=== PATIENT | male | born 1995 | race Caucasian/White ===

== ENCOUNTER 2023-03-19 00:18 | Emergency (ER) | payer MEDICAID, OTHER | END 2023-03-19 00:58 | disposition left against medical advice (07) | LOC: EMS 00:19 | DX: T40.601A Poisoning by unspecified narcotics, accidental (unintentional), initial encounter (principal); F17.210 Nicotine dependence, cigarettes, uncomplicated; R11.2 Nausea with vomiting, unspecified; Y92.89 Other specified places as the place of occurrence of the external cause | CPT/HCPCS: 93005; 99281; Z7502 ==

== ENCOUNTER 2023-08-02 21:38 | Emergency (ER) | payer OTHER ==
[~2023-08-02] VITALS: Ht 177.8 cm; Wt 93.0 kg
[2023-08-02 21:46] VITALS: BP 117/77; PULSE 80; RESP 16; TEMP 98.2
[2023-08-02 22:34] LABS: COVID AG,FIA SOURCE NASAL SWAB
[2023-08-02 23:10] LABS: INFLUENZA TYPE A NEGATIVE FOR TYPE A (NEGATIVE); INFLUENZA TYPE B NEGATIVE FOR TYPE B (NEGATIVE); SARS-COV2 (COVID) ANTIGEN,FIA Negative (Negative)
[2023-08-02] MEDS ORDERED: ALBU18HF12 IH (23:23)
[2023-08-02] MEDS ORDERED: AZIT250T9 PO (23:23)
== END 2023-08-03 01:38 | disposition home or self-care (01) ==
LOC: EMS 21:41
DX: J06.9 Acute upper respiratory infection, unspecified (principal); J45.909 Unspecified asthma, uncomplicated; G43.909 Migraine, unspecified, not intractable, without status migrainosus; Z20.822 Contact with and (suspected) exposure to COVID-19
CPT/HCPCS: 87804; 99283

== ENCOUNTER 2024-03-12 08:18 | Emergency (ER) | payer OTHER ==
[~2024-03-12] VITALS: Ht 177.8 cm; Wt 97.7 kg
[~2024-03-12 08:18] MED LIST: ALBU18HF12 IH
[2024-03-12 08:20] VITALS: BP 134/81; PULSE 102; RESP 18; TEMP 98.2; O2SAT 96
[2024-03-12 09:10] LABS: EOSINOPHILS % (AUTO) 7.1 % (1.0-6.0); HEMATOCRIT 42.8 % (41-53); HEMOGLOBIN 14.6 g/dL (13.5-17.5); LYMPHOCYTES # (AUTO) 2.6 K/uL (1.0-4.8); LYMPHOCYTES % (AUTO) 45.9 % (22.0-44.0); MEAN CORPUSCULAR HEMOGLOBIN 29.8 pg (26.0-34.0); MEAN CORPUSCULAR VOLUME 88 fL (80-100); MONOCYTES # (AUTO) 0.5 K/uL (0.1-1.0); MONOCYTES % (AUTO) 8.9 % (2.0-9.0); NEUTROPHILS # (AUTO) 2.1 K/uL (1.8-7.7); NEUTROPHILS % (AUTO) 37.1 % (40.0-70.0); PLATELET COUNT (AUTO) 234 K/uL (150-450); RED BLOOD CELL COUNT(AUTO) 4.89 MIL/uL (4.50-5.90); RED CELL DISTRIBUTION WIDTH 13.2 % (11.5-14.5); WHITE BLOOD COUNT (AUTO) 5.6 K/uL (4.5-11.0)
[2024-03-12 09:15] LABS: ANION GAP 11 mmol/L (8-16); CALCIUM, TOTAL 8.5 mg/dL (8.8-10.5); CARBON DIOXIDE 25 mmol/L (22-29); CHLORIDE 104 mmol/L (98-107); GLOMERULAR FILTR. RATE CALC > 60 mL/min (>60); GLUCOSE,RANDOM 105 mg/dL (70-110); POTASSIUM 3.5 mmol/L (3.5-5.1); SODIUM SERUM 140 mmol/L (136-145); UREA NITROGEN, BLOOD 10 mg/dL (7-18)
[2024-03-12] MEDS: CIPROFLOXACIN HCL 250 MG TABLET PO ONE (09:22)
[2024-03-12] MEDS: DIPHENOXYLATE/ATROP 2.5-0.025 MG TABLET PO ONE (09:22)
[2024-03-12] MEDS: SODIUM CHLORIDE 0.9% 500 ML IV ONE (09:23)
== END 2024-03-12 10:10 | disposition home or self-care (01) ==
LOC: EMS 08:18
DX: R19.7 Diarrhea, unspecified (principal); R11.2 Nausea with vomiting, unspecified
CPT/HCPCS: 99283; 96360; 80048; 85025; 36415; J7040